=== PATIENT | female | born 1940 | race Caucasian/White ===

== ENCOUNTER 2016-10-22 23:17 | Emergency (ER) | payer MEDICARE, BC ==
[2016-10-22 23:31] VITALS: O2SAT 96
[2016-10-22 23:44] VITALS: TEMP 97.6
--- NOTE | 2016-10-23 00:03 | RAD ---
EXAM DESCRIPTION: XR CHEST 1 VIEW CLINICAL HISTORY: elevated blood pressure, chest tightness COMPARISON: None FINDINGS: Cardiac silhouette is within normal limits. Pacer leads project over the heart. Aorta is tortuous. There is atherosclerosis at the level of the aortic arch. There is no focal parenchymal or pleural disease. There is no acute osseous process visualized. IMPRESSION: No evidence of acute cardiopulmonary disease. Electronically signed by: Kamron Chaidez 10/23/2016 00:00
--- NOTE | 2016-10-23 00:13 | ED.PDOC ---
History of Present Illness - General Chief Complaint: Blood Pressure Problem Stated Complaint: elevated blood pressure Time Seen by Provider: 10/22/16 23:40 Source: patient, RN notes reviewed, Vital Signs reviewed Exam Limitations: no limitations - History of Present Illness Initial Comments: This 76 y/o female with a history of HTN, afib, and pacemaker, has had elevated blood pressure today. Her PCP recently stopped her amlodipine 2.5 mg because her blood pressure had been too high. Yesterday, her blood pressure was as low as 80/39. Today, however, her blood pressure has been high, over 180 systolic. She did take her amlodipine today because of her elevated blood pressure. She denies chest pain, however she feels like she has a band around her chest just under her breasts. Timing/Duration: 24 hours Severity: moderate Improving Factors: nothing Worsening Factors: nothing Associated Symptoms: denies symptoms Allergies/Adverse Reactions: Allergies narcotics Allergy (Uncoded 10/22/16 23:31) Home Medications: Ambulatory Orders Amlodipine Besylate [Norvasc] 2.5 mg PO 10/22/16 Atorvastatin Calcium [Lipitor] 10 mg PO 10/22/16 Escitalopram [Lexapro] 10 mg PO 10/22/16 Flecainide [Tambocor] 50 mg PO 10/22/16 Glipizide 5 mg PO 10/22/16 Guanfacine HCl (Adhd) [Guanfacine ER] 2 mg PO 10/22/16 Losartan Potassium & Hydrochlo [Losartan Potassium/Hydroc 100-25 mg] 1 tab PO Metoprolol Succinate [Metoprolol Succinate ER] 50 mg PO 10/22/16 Omeprazole [PriLOSEC Cap] 20 mg PO 10/22/16 Oxazepam 10 mg PO 10/22/16 Rivaroxaban [Xarelto] 20 mg PO 10/22/16 SAXaglipitin [Onglyza] 5 mg PO 10/22/16 Potassium Chloride [K-Tab] 20 meq PO DAILY #30 tab 10/23/16 Review of Systems - Review of Systems Constitutional: States: no symptoms reported EENTM: States: no symptoms reported Respiratory: States: no symptoms reported Cardiology: States: no symptoms reported Gastrointestinal/Abdominal: States: no symptoms reported Genitourinary: States: no symptoms reported Musculoskeletal: States: no symptoms reported Skin: States: no symptoms reported Neurological: States: tingling - in fingers Endocrine: States: intolerance to cold Hematologic/Lymphatic: States: easy bleeding, easy bruising Past Medical History (General) - Patient Medical History Hx Cardiac Disorders: Yes Hx Congestive Heart Failure: No Hx Hypertension: Yes Hx Diabetes: Yes Surgical History: Hysterectomy - Vaccination History Hx Influenza Vaccination: Yes Hx Pneumococcal Vaccination: Yes - Female History Patient is a Female of Child Bearing Age (10 -59 yrs old): No - Triage Comment ED Triage Comment: states blood pressure had been low, so PCP stopped one of 4 BP meds, now elevated again Family Medical History - Family History Mother Hx Family Stroke: Yes Physical Exam - Physical Exam General Appearance: Alert, Anxious, No apparent distress Eye Exam: bilateral normal Ears, Nose, Throat: hearing grossly normal, normal ENT inspection Respiratory: chest non-tender, lungs clear, normal breath sounds, no respiratory distress, no accessory muscle use Cardiovascular/Chest: no edema, no gallop, no murmur, irregularly irregular Peripheral Pulses: radial,right: 2+, radial,left: 2+, dorsalis pedis,right: 1+, dorsalis pedis,left: 1+ Gastrointestinal/Abdominal: normal bowel sounds, non tender, soft, no organomegaly, no pulsatile mass Extremity: non-tender, no calf tenderness Neurologic: no motor/sensory deficits, alert, normal mood/affect, oriented x 3 Skin Exam: normal color, warm/dry Progress - Results/Orders Results/Orders: 10/22/16 10/22/16 10/22/16 23:28 23:38 23:43 Temperature 97.6 F Pulse Rate [ 80 80 Right] Respiratory 16 Rate Blood Pressure 194/92 [Left Arm] O2 Sat by Pulse 96 Oximetry 10/22/16 10/23/16 10/23/16 23:56 00:17 00:21 Temperature Pulse Rate [ 70 70 70 Right] Respiratory Rate Blood Pressure 191/85 173/76 165/77 [Left Arm] O2 Sat by Pulse Oximetry 10/23/16 00:55 Temperature Pulse Rate [ 70 Right] Respiratory 16 Rate Blood Pressure 159/74 [Left Arm] O2 Sat by Pulse Oximetry 10/22/16 23:45 EKG STAT Laboratory Results WBC 8.3 K/mm3 (4.8-10.8) 10/22/16 23:50 RBC 4.43 M/mm3 (4.20-5.40) 10/22/16 23:50 Hgb 12.7 gm/dL (12.0-16.0) 10/22/16 23:50 Hct 37.0 % (36.0-47.0) 10/22/16 23:50 MCV 83.4 fl (81.0-99.0) 10/22/16 23:50 MCH 28.5 pg (27.0-31.0) 10/22/16 23:50 MCHC 34.2 g/dL (33.0-37.0) 10/22/16 23:50 RDW 14.1 % (11.5-14.5) 10/22/16 23:50 Plt Count 146 K/mm3 (130-400) 10/22/16 23:50 MPV 8.1 fl (7.40-10.4) 10/22/16 23:50 Absolute Neuts (auto) 5.50 K/uL (1.8-6.8) 10/22/16 23:50 Absolute Lymphs (auto) 1.60 K/uL (1.0-3.4) 10/22/16 23:50 Absolute Monos (auto) 1.00 K/uL (0.2-0.8) H 10/22/16 23:50 Absolute Eos (auto) 0.10 K/uL (0.0-0.4) 10/22/16 23:50 Absolute Basos (auto) 0.00 K/uL (0.0-0.1) 10/22/16 23:50 Neutrophils % 66.3 % (42.0-78.0) 10/22/16 23:50 Lymphocytes % 19.3 % (20.0-50.0) L 10/22/16 23:50 Monocytes % 12.5 % (2.0-9.0) H 10/22/16 23:50 Eosinophils % 1.3 % (1.0-5.0) 10/22/16 23:50 Basophils % 0.6 % (0.0-2.0) 10/22/16 23:50 PT 20.5 SECONDS (9.4-12.5) H* 10/22/16 23:50 INR 1.860 10/22/16 23:50 PTT (SP) 39.3 SECONDS (25.1-36.5) H 10/22/16 23:50 Sodium 137 mmol/L (135-145) 10/22/16 23:50 Potassium 2.9 mmol/L (3.6-5.0) L 10/22/16 23:50 Chloride 100 mmol/L (101-111) L 10/22/16 23:50 Carbon Dioxide 31 mmol/L (21-31) 10/22/16 23:50 Anion Gap 8.9 (12-18) L 10/22/16 23:50 BUN 18 mg/dL (7-18) 10/22/16 23:50 Creatinine 1.20 mg/dL (0.6-1.3) 10/22/16 23:50 BUN/Creatinine Ratio 15.0 (10-20) 10/22/16 23:50 Random Glucose 166 mg/dL (70-105) H 10/22/16 23:50 Serum Osmolality 279.5 mOsm/L (275-295) 10/22/16 23:50 Calcium 9.0 mg/dL (8.4-10.2) 10/22/16 23:50 Magnesium 1.8 mg/dL (1.8-2.5) 10/22/16 23:50 Total Bilirubin 1.0 mg/dL (0.2-1.0) 10/22/16 23:50 Direct Bilirubin 0.2 mg/dL (0-0.2) 10/22/16 23:50 Indirect Bilirubin 0.8 mg/dL (0.2-0.8) 10/22/16 23:50 AST 23 IU/L (10-42) 10/22/16 23:50 ALT 16 IU/L (10-60) 10/22/16 23:50 Alkaline Phosphatase 81 IU/L (42-121) 10/22/16 23:50 Creatine Kinase 34 IU/L (26-140) 10/22/16 23:50 CK-MB (CK-2) 0.8 ng/mL (0.0-4.4) 10/22/16 23:50 CK-MB (CK-2) % Not Reportable 10/22/16 23:50 Troponin I < 0.02 ng/mL (0.01-0.05) 10/22/16 23:50 B-Natriuretic Peptide 83.1 pg/ml (0-100) 10/22/16 23:50 Serum Total Protein 7.2 gm/dL (6.4-8.2) 10/22/16 23:50 Albumin 4.1 g/dl (3.2-5.5) 10/22/16 23:50 Urine Color Yellow (Yellow) 10/23/16 00:12 Urine Appearance Clear (Clear) 10/23/16 00:12 Urine pH 5.5 (4.5-7.8) 10/23/16 00:12 Ur Specific [place] 1.020 (1.005-1.030) 10/23/16 00:12 Urine Protein Negative mg/dL 10/23/16 00:12 Urine Glucose (UA) Negative mg/dL (Negative) 10/23/16 00:12 Urine Ketones Negative mg/dL (NEGATIVE) 10/23/16 00:12 Urine Blood Trace-lysed (Negative) H 10/23/16 00:12 Urine Nitrite Negative 10/23/16 00:12 Urine Bilirubin Negative (NEGATIVE) 10/23/16 00:12 Urine Urobilinogen 0.2 mg/dL (0.2-1.0) 10/23/16 00:12 Ur Leukocyte Esterase Negative (Negative) 10/23/16 00:12 Urine RBC 0-1 /hpf 10/23/16 00:12 Urine WBC 0-1 /hpf 10/23/16 00:12 Ur Epithelial Cells 3-5 /hpf 10/23/16 00:12 Urine Bacteria 0 10/23/16 00:12 - EKG/XRAY/CT EKG: Sinus, LBBB Comments: 72bpm, LAD, 1st deg. a/v block, XRAY: chest Xray Comments: Unremarkable Departure - Departure Clinical Impression: Asymptomatic hypertensive urgency, Hypokalemia Hypertension Qualifiers: Hypertension type: essential hypertension Qualifier Code: (I10) Essential ( primary) hypertension Time of Disposition: :19 Disposition: Discharge to Home or Self Care Condition: Fair Departure Forms: ED Discharge - Pt. Copy, Patient Portal Self Enrollment Instructions: Hypokalemia, DI for Hypokalemia Diet: low fat, low cholesterol, diabetic diet, low salt diet Referrals: Tolu Muniz MD [Primary Care Provider] - 1-2 Days Prescriptions: Potassium Chloride [K-Tab] 20 meq PO DAILY #30 tab Home Medications: Ambulatory Orders Amlodipine Besylate [Norvasc] 2.5 mg PO 10/22/16 Atorvastatin Calcium [Lipitor] 10 mg PO 10/22/16 Escitalopram [Lexapro] 10 mg PO 10/22/16 Flecainide [Tambocor] 50 mg PO 10/22/16 Glipizide 5 mg PO 10/22/16 Guanfacine HCl (Adhd) [Guanfacine ER] 2 mg PO 10/22/16 Losartan Potassium & Hydrochlo [Losartan Potassium/Hydroc 100-25 mg] 1 tab PO Metoprolol Succinate [Metoprolol Succinate ER] 50 mg PO 10/22/16 Omeprazole [PriLOSEC Cap] 20 mg PO 10/22/16 Oxazepam 10 mg PO 10/22/16 Rivaroxaban [Xarelto] 20 mg PO 10/22/16 SAXaglipitin [Onglyza] 5 mg PO 10/22/16 Potassium Chloride [K-Tab] 20 meq PO DAILY #30 tab 10/23/16
[2016-10-23] MEDS ORDERED: POTASSIUM CHLORIDE 20 MEQ TAB PO ONE (00:58)
[2016-10-23 01:25] VITALS: BP 156/74
== END 2016-10-23 01:31 | disposition home or self-care (01) ==
LOC: ER 23:17
DX: I16.0 Hypertensive urgency (principal); E87.6 Hypokalemia; E11.9 Type 2 diabetes mellitus without complications; Z82.3 Family history of stroke; I44.0 Atrioventricular block, first degree; I48.91 Unspecified atrial fibrillation; Z95.0 Presence of cardiac pacemaker; Z88.5 Allergy status to narcotic agent; Z79.899 Other long term (current) drug therapy; Z79.02 Long term (current) use of antithrombotics/antiplatelets

== ENCOUNTER → 2016-11-11 | Outpatient (CLI) | payer MEDICARE, BC ==
--- NOTE | 2016-11-11 15:53 | MAM ---
EXAM DESCRIPTION: MAMMO BREAST SCREENING BILATERAL CAD, images were reviewed with CAD technology, R2 computer-aided detection. CLINICAL HISTORY: [facility]. COMPARISON: 2012. FINDINGS: Routine views are obtained. Scattered glandular pattern with the increased mammographic density. Questioned asymmetry right breast 2 o'clock approximately 6-7 cm from the nipple. No microcalcifications or architectural distortion. No mammographic abnormality on the right.. IMPRESSION: Incomplete exam. BIRAD CATEGORY: 0 INCOMPLETE RECOMMENDATIONS: FOLLOW-UP: True lateral view left breast with spot compression films in the true lateral and craniocaudal projections. Followup ultrasound as indicated clinically. According to the [employer], yearly mammograms are recommended starting at age 40 and continuing as long as a woman is in good health. Any breast change noted on a breast self-exam should be reported promptly to the patient's healthcare provider. Breast MRI is recommended for women with an approximately 20-25% or greater lifetime risk of breast cancer, including women with a strong family history of breast or ovarian cancer and women who have been treated for Hodgkin's disease. Electronically signed by: Maida Beck 11/11/2016 15:51
== END ==
LOC: MAMMO 09:26
PROVIDERS: ATTEND Family Medicine
DX: Z12.31 Encounter for screening mammogram for malignant neoplasm of breast (principal)
CPT/HCPCS: 77052; G0202

== ENCOUNTER → 2016-12-05 | Outpatient (CLI) | payer MEDICARE, BC ==
--- NOTE | 2016-12-05 09:26 | MAM ---
EXAM DESCRIPTION: MAMMO BREAST DIAGNOSTIC UNILATERAL Images were reviewed with R2 computer-aided detection. CLINICAL HISTORY: Left breast asymmetry 2 o'clock COMPARISON: Baseline study 11/11/2016. FINDINGS: True lateral and spot compression views are obtained and compared with prior study from 2013. Scattered glandular slightly nodular pattern. No persistent asymmetry is demonstrated on additional views with questioned abnormality representing a superimposition of normal glandular tissue and benign intramammary lymph node. No architectural distortion or dominant mass. Benign appearing calcifications. IMPRESSION: Benign exam. BIRAD CATEGORY: 2 BENIGN RECOMMENDATION: FOLLOW-UP: Routine annual mammography. Findings and recommendations were communicated to the patient by the technologist. According to the [employer], yearly mammograms are recommended starting at age 40 and continuing as long as a woman is in good health. Any breast change noted on a breast self-exam should be reported promptly to the patient's healthcare provider. Breast MRI is recommended for women with an approximately 20-25% or greater lifetime risk of breast cancer, including women with a strong family history of breast or ovarian cancer and women who have been treated for Hodgkin's disease. Electronically signed by: Maida Beck 12/05/2016 09:25
== END | disposition home or self-care (01) ==
LOC: MAMMO 08:24
PROVIDERS: ATTEND Family Medicine
DX: R92.2 Inconclusive mammogram (principal)
CPT/HCPCS: 77065; G0206

== ENCOUNTER → 2017-01-02 | Outpatient (CLI) | payer MEDICARE, BC | END | disposition home or self-care (01) | LOC: GMAJ 11:18 | PROVIDERS: ATTEND Family Medicine | DX: E78.00 Pure hypercholesterolemia, unspecified (principal) ==

== ENCOUNTER → 2017-05-26 | Outpatient (CLI) | payer MEDICARE, BC | END | disposition home or self-care (01) | LOC: GMAJ 10:30 | PROVIDERS: ATTEND Family Medicine | DX: E78.00 Pure hypercholesterolemia, unspecified (principal); I10 Essential (primary) hypertension; E11.9 Type 2 diabetes mellitus without complications ==

== ENCOUNTER → 2017-05-30 | Outpatient (CLI) | payer MEDICARE ==
--- NOTE | 2017-05-31 16:26 | CT ---
PROCEDURE: Head CLINICAL HISTORY: 76 years Female UNSPECIFIED SUBJECTIVE VISUAL DISTURBANCES COMPARISON: 09/27/2013 TECHNIQUE: Contiguous axial CT images obtained through the brain without IV contrast. This exam was performed according to our department optimization program which includes automated exposure control, adjustment of the mA and/or kv according to patient size and/or use of iterative reconstruction technique. FINDINGS: The ventricles and sulci are prominent consistent with atrophic changes. Microvascular ischemic changes. No midline shift or mass effect. No mass lesions. No acute hemorrhage. Atherosclerotic calcifications. The distal basilar artery appears mildly ectatic measuring 5 to 6 mm. This could be further evaluated with CTA. No fluid or significant mucosal thickening in the visualized paranasal sinuses. No depressed calvarial fractures. IMPRESSION: No acute intracranial abnormality is identified. Generalized atrophy with microvascular ischemic changes. 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 This appears more pronounced than on the prior study. This could be further evaluated with CTA Electronically signed by: Ifrah Rendon 05/31/2017 4:25 PM CDT
== END | disposition home or self-care (01) ==
LOC: CT 10:01
PROVIDERS: ATTEND Family Medicine
DX: H53.10 Unspecified subjective visual disturbances (principal)

== ENCOUNTER 2017-07-03 10:25 | Emergency (ER) | payer MEDICARE ==
--- NOTE | 2017-07-03 10:34 | ED.PDOC ---
History of Present Illness - General Chief Complaint: General Time Seen by Provider: 07/03/17 10:33 Source: patient Exam Limitations: no limitations - History of Present Illness Initial Comments: Juju Sommers 76 y/o female stated that she had no productive cough ,congestion nose ,body aches ,feels hot/cold for the last 2 weeks and recently was diagnosed with strep infection had antibiotic shot and taking oral antibiotic as well.No foreign travel,no ill contact. Timing/Duration: other - 2 weeks ago Improving Factors: nothing Worsening Factors: nothing Associated Symptoms: cough - dry Allergies/Adverse Reactions: Allergies Meloxicam [From Mobic] Allergy (Verified 07/03/17 10:45) Nifedipine [From Procardia] Allergy (Verified 07/03/17 10:45) narcotics Allergy (Uncoded 10/22/16 23:31) Home Medications: Ambulatory Orders Amlodipine Besylate [Norvasc] 2.5 mg PO 10/22/16 Atorvastatin Calcium [Lipitor] 10 mg PO 10/22/16 Escitalopram [Lexapro] 10 mg PO 10/22/16 Flecainide [Tambocor] 50 mg PO 10/22/16 Glipizide 5 mg PO 10/22/16 Guanfacine HCl (Adhd) [Guanfacine ER] 2 mg PO 10/22/16 Losartan Potassium & Hydrochlo [Losartan Potassium/Hydroc 100-25 mg] 1 tab PO Metoprolol Succinate [Metoprolol Succinate ER] 50 mg PO 10/22/16 Omeprazole [PriLOSEC Cap] 20 mg PO 10/22/16 Oxazepam 10 mg PO 10/22/16 Rivaroxaban [Xarelto] 20 mg PO 10/22/16 SAXaglipitin [Onglyza] 5 mg PO 10/22/16 Potassium Chloride [K-Tab] 20 meq PO DAILY #30 tab 10/23/16 Review of Systems - Review of Systems Constitutional: States: see HPI EENTM: States: see HPI Respiratory: States: see HPI Cardiology: States: no symptoms reported Gastrointestinal/Abdominal: States: no symptoms reported Genitourinary: States: no symptoms reported Musculoskeletal: States: no symptoms reported Skin: States: no symptoms reported Neurological: States: no symptoms reported Past Medical History (General) - Patient Medical History Hx Cardiac Disorders: Yes Hx Congestive Heart Failure: No Hx Pacemaker: Yes - a.fib Hx Hypertension: Yes Hx Diabetes: Yes Surgical History: other - lumbar spine,hysterectomy,pacemaker - Vaccination History Hx Influenza Vaccination: Yes Hx Pneumococcal Vaccination: Yes - Activities of Daily Living Patient Lives Alone: Yes - /family members nearby Grooming Ability: Independent Eating (Feeding) Ability: Independent Toileting Ability: Independent - Female History Patient is a Female of Child Bearing Age (10 -59 yrs old): No - postmenopausal Family Medical History - Family History Mother Hx Family Stroke: Yes - parents Hx Cardiac Disease: Yes - parents Hx Family Cancer: Yes - sisters-ovarian & breast Sister Hx Family Cancer: Yes Physical Exam - Physical Exam Eye Exam: bilateral normal Ears, Nose, Throat: hearing grossly normal, normal ENT inspection, normal pharynx Neck: non-tender, supple Respiratory: chest non-tender, lungs clear, normal breath sounds Cardiovascular/Chest: normal peripheral pulses, regular rate, rhythm, no murmur Peripheral Pulses: radial,right: 1+, radial,left: 1+ Gastrointestinal/Abdominal: normal bowel sounds, non tender, soft, no organomegaly Back Exam: no CVA tenderness, no vertebral tenderness Extremity: non-tender, no pedal edema, no calf tenderness Neurologic: alert, normal mood/affect, oriented x 3 Skin Exam: normal color, warm/dry Lymphatic: no adenopathy Progress - Progress Progress: 07/03/17 12:14 Vital Signs - 8 hr 07/03/17 07/03/17 10:28 11:05 Temperature 97.6 F Pulse Rate [ 69 70 pulse ox] Respiratory 16 20 Rate Blood Pressure 196/74 182/68 [right brachial ] O2 Sat by Pulse 100 98 Oximetry Laboratory Tests 07/03/17 07/03/17 07/03/17 11:05 11:05 11:05 WBC 6.7 RBC 4.41 Hgb 13.0 Hct 37.8 MCV 85.6 MCH 29.5 MCHC 34.5 RDW 14.6 H Plt Count 175 MPV 7.5 Absolute Neuts (auto) 5.30 Absolute Lymphs (auto) 0.70 L Absolute Monos (auto) 0.60 Absolute Eos (auto) 0.00 Absolute Basos (auto) 0.00 Neutrophils % 79.1 H Lymphocytes % 11.1 L Monocytes % 8.8 Eosinophils % 0.6 L Basophils % 0.4 D-Dimer, Quantitative < 200 Sodium 134 L Potassium 3.5 L Chloride 98 L Carbon Dioxide 29 Anion Gap 10.5 L BUN 22 H Creatinine 0.68 BUN/Creatinine Ratio 32.4 H Random Glucose 321 H Serum Osmolality 283.9 Calcium 9.9 Total Bilirubin 0.9 AST 31 ALT 22 Alkaline Phosphatase 66 Creatine Kinase 40 CK-MB (CK-2) 0.7 CK-MB (CK-2) % Not Reportable Troponin I < 0.02 B-Natriuretic Peptide 129.0 H Serum Total Protein 7.7 Albumin 4.4 Globulin 3.3 Albumin/Globulin Ratio 1.3 Urine Color Urine Appearance Urine pH Ur Specific [place] Urine Protein Urine Glucose (UA) Urine Ketones Urine Blood Urine Nitrite Urine Bilirubin Urine Urobilinogen Ur Leukocyte Esterase Urine RBC Urine WBC Ur Epithelial Cells Urine Bacteria Urine Mucus 07/03/17 11:05 WBC RBC Hgb Hct MCV MCH MCHC RDW Plt Count MPV Absolute Neuts (auto) Absolute Lymphs (auto) Absolute Monos (auto) Absolute Eos (auto) Absolute Basos (auto) Neutrophils % Lymphocytes % Monocytes % Eosinophils % Basophils % D-Dimer, Quantitative Sodium Potassium Chloride Carbon Dioxide Anion Gap BUN Creatinine BUN/Creatinine Ratio Random Glucose Serum Osmolality Calcium Total Bilirubin AST ALT Alkaline Phosphatase Creatine Kinase CK-MB (CK-2) CK-MB (CK-2) % Troponin I B-Natriuretic Peptide Serum Total Protein Albumin Globulin Albumin/Globulin Ratio Urine Color Yellow Urine Appearance Clear Urine pH 6.0 Ur Specific [place] 1.020 Urine Protein Negative Urine Glucose (UA) 500 H Urine Ketones Negative Urine Blood Small H Urine Nitrite Negative Urine Bilirubin Negative Urine Urobilinogen 0.2 Ur Leukocyte Esterase Negative Urine RBC 0-1 Urine WBC 0 Ur Epithelial Cells 1-3 Urine Bacteria 0 Urine Mucus Small - Results/Orders Results/Orders: Laboratory Tests 07/03/17 07/03/17 07/03/17 11:05 11:05 11:05 WBC 6.7 RBC 4.41 Hgb 13.0 Hct 37.8 MCV 85.6 MCH 29.5 MCHC 34.5 RDW 14.6 H Plt Count 175 MPV 7.5 Absolute Neuts (auto) 5.30 Absolute Lymphs (auto) 0.70 L Absolute Monos (auto) 0.60 Absolute Eos (auto) 0.00 Absolute Basos (auto) 0.00 Neutrophils % 79.1 H Lymphocytes % 11.1 L Monocytes % 8.8 Eosinophils % 0.6 L Basophils % 0.4 D-Dimer, Quantitative < 200 Sodium 134 L Potassium 3.5 L Chloride 98 L Carbon Dioxide 29 Anion Gap 10.5 L BUN 22 H Creatinine 0.68 BUN/Creatinine Ratio 32.4 H Random Glucose 321 H Serum Osmolality 283.9 Calcium 9.9 Total Bilirubin 0.9 AST 31 ALT 22 Alkaline Phosphatase 66 Creatine Kinase 40 CK-MB (CK-2) 0.7 CK-MB (CK-2) % Not Reportable Troponin I < 0.02 B-Natriuretic Peptide 129.0 H Serum Total Protein 7.7 Albumin 4.4 Globulin 3.3 Albumin/Globulin Ratio 1.3 Urine Color Urine Appearance Urine pH Ur Specific [place] Urine Protein Urine Glucose (UA) Urine Ketones Urine Blood Urine Nitrite Urine Bilirubin Urine Urobilinogen Ur Leukocyte Esterase Urine RBC Urine WBC Ur Epithelial Cells Urine Bacteria Urine Mucus 07/03/17 11:05 WBC RBC Hgb Hct MCV MCH MCHC RDW Plt Count MPV Absolute Neuts (auto) Absolute Lymphs (auto) Absolute Monos (auto) Absolute Eos (auto) Absolute Basos (auto) Neutrophils % Lymphocytes % Monocytes % Eosinophils % Basophils % D-Dimer, Quantitative Sodium Potassium Chloride Carbon Dioxide Anion Gap BUN Creatinine BUN/Creatinine Ratio Random Glucose Serum Osmolality Calcium Total Bilirubin AST ALT Alkaline Phosphatase Creatine Kinase CK-MB (CK-2) CK-MB (CK-2) % Troponin I B-Natriuretic Peptide Serum Total Protein Albumin Globulin Albumin/Globulin Ratio Urine Color Yellow Urine Appearance Clear Urine pH 6.0 Ur Specific [place] 1.020 Urine Protein Negative Urine Glucose (UA) 500 H Urine Ketones Negative Urine Blood Small H Urine Nitrite Negative Urine Bilirubin Negative Urine Urobilinogen 0.2 Ur Leukocyte Esterase Negative Urine RBC 0-1 Urine WBC 0 Ur Epithelial Cells 1-3 Urine Bacteria 0 Urine Mucus Small - EKG/XRAY/CT EKG: Sinus, LBBB, Unchanged from - 10/22/16 Comments: heart rate-70 XRAY: chest - stable chest Departure - Departure Clinical Impression: Asymptomatic hypertensive urgency, Body aches, Viral upper respiratory illness , History of strep sore throat Time of Disposition: 12:32 Disposition: Discharge to Home or Self Care Condition: Fair Instructions: DI for Viral Upper Respiratory Infection -- Adult Referrals: Tolu Muniz MD [Primary Care Provider] - 1-2 Weeks Home Medications: Ambulatory Orders Amlodipine Besylate [Norvasc] 2.5 mg PO 10/22/16 Atorvastatin Calcium [Lipitor] 10 mg PO 10/22/16 Escitalopram [Lexapro] 10 mg PO 10/22/16 Flecainide [Tambocor] 50 mg PO 10/22/16 Glipizide 5 mg PO 10/22/16 Guanfacine HCl (Adhd) [Guanfacine ER] 2 mg PO 10/22/16 Losartan Potassium & Hydrochlo [Losartan Potassium/Hydroc 100-25 mg] 1 tab PO Metoprolol Succinate [Metoprolol Succinate ER] 50 mg PO 10/22/16 Omeprazole [PriLOSEC Cap] 20 mg PO 10/22/16 Oxazepam 10 mg PO 10/22/16 Rivaroxaban [Xarelto] 20 mg PO 10/22/16 SAXaglipitin [Onglyza] 5 mg PO 10/22/16 Potassium Chloride [K-Tab] 20 meq PO DAILY #30 tab 10/23/16 Additional Instructions: Continue with all home medications;Return to emergency room as needed
[2017-07-03 10:52] VITALS: TEMP 97.6
[2017-07-03] MEDS ORDERED: cloNIDine HCL 0.1 MG TAB PO ONE (11:08)
--- NOTE | 2017-07-03 11:59 | RAD ---
EXAM DESCRIPTION: Chest,2 Views CLINICAL HISTORY: 76 years, Female, fever COMPARISON: October 22 FINDINGS: Adequate inspiration. Fibrotic type changes at the bases. Cardiac silhouette upper normal. Dual-lead pacemaker. IMPRESSION: Stable chronic appearing lung change with upper normal heart size Electronically signed by: Gareth Salazar MD 07/03/2017 11:57 AM CDT
[2017-07-03 12:49] VITALS: BP 121/74; O2SAT 97
== END 2017-07-03 12:45 | disposition home or self-care (01) ==
LOC: ER 10:25
DX: I16.0 Hypertensive urgency (principal); J06.9 Acute upper respiratory infection, unspecified; I48.91 Unspecified atrial fibrillation; E11.9 Type 2 diabetes mellitus without complications; I44.7 Left bundle-branch block, unspecified; M79.1 Myalgia; Z88.8 Allergy status to other drugs, medicaments and biological substances; Z79.899 Other long term (current) drug therapy

== ENCOUNTER → 2017-07-12 | Outpatient (CLI) | payer MEDICARE, BC | LOC: GMA 13:17 | PROVIDERS: ATTEND Nurse Practitioner Family | DX: N30.00 Acute cystitis without hematuria (principal) ==

== ENCOUNTER → 2017-07-15 | Outpatient (CLI) | payer MEDICARE, BC | END | disposition home or self-care (01) | LOC: GMAJ 14:46 | PROVIDERS: ATTEND Family Medicine | DX: R10.9 Unspecified abdominal pain (principal) ==

== ENCOUNTER → 2017-07-16 | Outpatient (CLI) | payer MEDICARE, BC ==
--- NOTE | 2017-07-17 08:48 | CT ---
EXAM DESCRIPTION: Abdomen w/o Contrast CLINICAL HISTORY: ABDOMINAL PAIN COMPARISON: None Available TECHNIQUE: CT of the abdomen only was performed without IV contrast. This exam was performed according to our departmental dose-optimization program, which includes automated exposure control, adjustment of the mA and/or kV according to patient size and/or use of iterative reconstruction technique. FINDINGS: There is no lung base abnormality. No pneumoperitoneum, ascites or adenopathy. No hiatal hernia or definite gastric wall thickening. No calcified gallstone. Cardiac pacemaker leads are only partially visualized. The liver, spleen, pancreas, adrenals and kidneys are unremarkable. Visualized portions of the small bowel are unremarkable. There is minimal colonic diverticulosis, only partially visualized, but no apparent diverticulitis. Portions of the cecum and appendix are not definitely included on this exam. No concerning bone lesion. No abdominal aortic aneurysm. IMPRESSION: Occasional colonic diverticulosis only partially visualized, but no apparent diverticulitis or other intra-abdominal abnormality to explain patient symptoms. Electronically signed by: Jim Huang MD 07/17/2017 8:46 AM CDT
== END ==
LOC: CT 09:40
PROVIDERS: ATTEND Family Medicine
DX: R10.9 Unspecified abdominal pain (principal); K57.30 Diverticulosis of large intestine without perforation or abscess without bleeding

== ENCOUNTER → 2017-11-18 | Outpatient (CLI) | payer MEDICARE, BC | LOC: GMAJ 10:38 | PROVIDERS: ATTEND Family Medicine | DX: I10 Essential (primary) hypertension (principal) ==

== ENCOUNTER → 2017-12-01 | Outpatient (CLI) | payer MEDICARE ==
--- NOTE | 2017-12-03 16:30 | MAM ---
EXAM DESCRIPTION: 3D Screening BILATERAL : Digital Mammography. CLINICAL HISTORY: 77 years Female SCREENING . No complaints. Sister with breast cancer. Prior hysterectomy. HRT 5 or more years ago. COMPARISON: 2-D digital screening bilateral study 11/11/2016 and 11/01/2015. Report from prior examination also reviewed. TECHNIQUE: Bilateral CC and MLO projection full-field images, 3-D tomosynthesis digital mammographic technique. Also bilateral synthesized CC/ MLO full-field images. CAD not utilized. FINDINGS: The breast parenchymal density pattern is: Heterogeneously dense breast tissue, which may obscure small masses. No skin thickening or nipple retraction bilateral solitary microcalcifications. Injection port partially obscuring the left pectoral muscle. Focal asymmetry in the upper left breast is not visualized. No focal, stellate mass or density, focal asymmetry , and no suspicious microcalcifications bilaterally. Stable mammograms compared to prior study, taking into account differences in mammographic technique IMPRESSION: BI-RADS CATEGORY: 2 - BENIGN FINDINGS. FOLLOW UP: Routine digital bilateral screening, one year interval from November 2017. Written communication explaining the IMPRESSION and follow-up, will be mailed to the patient and referring health care provider. According to the [employer], yearly mammograms are recommended starting at age 40 and continuing as long as a woman is in good health. Any breast change noted on a breast self-exam should be reported promptly to the patient's healthcare provider. Breast MRI is recommended for women with an approximately 20-25% or greater lifetime risk of breast cancer, including women with a strong family history of breast or ovarian cancer and women who have been treated for Hodgkin's disease. A negative mammographic report should not delay tissue diagnosis in patients with significant clinical history or physical findings. Extremely dense breast tissue limits the sensitivity of digital mammography. Electronically signed by: Frank Vaca MD 12/03/2017 4:29 PM [employer]
== END ==
LOC: MAMMO 09:30
PROVIDERS: ATTEND Family Medicine
DX: Z12.31 Encounter for screening mammogram for malignant neoplasm of breast (principal)

== ENCOUNTER → 2017-12-04 | Outpatient (CLI) | payer MEDICARE ==
--- NOTE | 2017-12-06 11:33 | RAD ---
4 view right shoulder. Indication: PAIN IN RIGHT SHOULDER Comparison: October 07, 2016. Impression: A.C. and glenohumeral joint alignment normal without acute fracture or dislocation. Slight superior migration humeral head which could indicate underlying rotator cuff tendon tearing. CT arthrogram could better evaluate as clinically indicated. Moderate AC joint osteoarthritis. Mild glenohumeral joint osteoarthritis with persistent millimetric ossification along the inferior margin of the glenoid rim. Cardiac pacemaker noted. Electronically signed by: Niko Nicholson MD 12/06/2017 11:32 AM [facility]
== END ==
LOC: RAD 01:41
PROVIDERS: ATTEND Orthopaedic Surgery
DX: M25.511 Pain in right shoulder (principal); M19.011 Primary osteoarthritis, right shoulder

== ENCOUNTER → 2017-12-08 | Outpatient (CLI) | payer MEDICARE ==
--- NOTE | 2017-12-08 11:32 | RAD ---
EXAM DESCRIPTION: Arthrogram Shoulder Right: RF CLINICAL HISTORY: ROTATOR CUFF SYNDROME. Right shoulder. Prior steroid injections. Patient has pacemaker. COMPARISON: Post-arthrogram CT scan of the right shoulder same date. TECHNIQUE: The procedure was explained to the patient with risks and benefits. The patient gave verbal and written consent. Patient supine on the fluoroscopic table with right shoulder in external rotation. The anterior mid superior right glenohumeral joint was localized by fluoroscopy. The skin was marked, then prepped and draped in a sterile fashion. Intradermal, subcutaneous and intramuscular 1% lidocaine was given for topical anesthesia. A 1.5 inch 25-gauge needle was introduced into the anterior superior right glenohumeral joint capsule under fluoroscopic visualization. A test injection of 2 cc of non-ionic contrast was performed under fluoroscopy. Additional 10 CC of contrast mixture of 1% lidocaine and nonionic contrast material was then injected under fluoroscopy. The patient tolerated the procedure well. Partial extra-articular injection. Patient was transferred to the CT suite for spiral-axial and reconstruction imaging. No immediate complications. Single AP image of the right shoulder in external rotation obtained. Total fluoroscopic time was 0.8 minutes. Dose was 5.87 mGy. IMPRESSION: Successful, fluoroscopic guided contrast arthrogram of the right shoulder, prior to CT scan. Please refer to that report. Electronically signed by: Frank Vaca MD 12/08/2017 11:31 AM [facility]
--- NOTE | 2017-12-08 11:39 | CT ---
CT arthrogram right shoulder INDICATION: Shoulder pain rotator cuff syndrome TECHNIQUE: Helical CT images through the right shoulder post arthrogram with multiplanar reformats This exam was performed according to our departmental dose-optimization program, which includes automated exposure control, adjustment of the mA and/or kV according to patient size and/or use of iterative reconstruction technique. FINDINGS: Subscapularis is intact. Long head bicep is anatomic in location with mild fraying. There is vacuum phenomena within the AC joint indicating mild to moderate osteoarthrosis. There is subacromial enthesophyte formation as well. No detachment of the bicep labral anchor. Minimal glenohumeral osteophyte formation. No full-thickness rotator cuff tear is noted. No bursal contrast extension. Mild degenerative fraying posterior superior labrum without displaced tear. No fracture dislocation or focal destructive lesion. No pathologic adenopathy in the axilla. Minimal synovitis within the glenohumeral capsule. Fairly normal capsular volume. There is mild generalized grade 1 marbling of the rotator cuff muscle bellies. Bursal surface partial tears of the rotator cuff are not visible by CT arthrogram. IMPRESSION: No full-thickness rotator cuff tear Generalized mild grade 1 marbling of the rotator cuff muscle bellies AC joint arthrosis with vacuum phenomenon and subacromial enthesophyte formation Mild labral degeneration and minimal glenohumeral osteophyte formation Electronically signed by: Ryan Squires MD 12/08/2017 11:38 AM [employer]
== END ==
LOC: CT 09:00
PROVIDERS: ATTEND Orthopaedic Surgery
DX: M75.101 Unspecified rotator cuff tear or rupture of right shoulder, not specified as traumatic (principal)

== ENCOUNTER → 2018-01-19 | Outpatient (CLI) | payer MEDICARE ==
--- NOTE | 2018-01-19 09:12 | RAD ---
EXAM DESCRIPTION: Knee,Right Complete CLINICAL HISTORY: PAIN IN RIGHT KNEE COMPARISON: None. TECHNIQUE: 4 views right FINDINGS: Mild loss of disc height is observed in the medial joint compartment. Mild patellofemoral joint degenerative changes are also observed. No joint effusion is seen. No fracturing is detected. IMPRESSION: There are mild degenerative changes are observed. No fracturing is detected. Electronically signed by: Kris Dee MD 01/19/2018 9:10 AM CDT
--- NOTE | 2018-01-19 09:13 | RAD ---
EXAM DESCRIPTION: Pelvis CLINICAL HISTORY: PAIN IN HIP COMPARISON: None. TECHNIQUE: AP pelvis FINDINGS: The proximal femurs are normal. The bony pelvis is intact. No fracturing is detected. IMPRESSION: Normal pelvis. Electronically signed by: Kris Dee MD 01/19/2018 9:12 AM CDT
== END ==
LOC: RAD 08:07
PROVIDERS: ATTEND Orthopaedic Surgery
DX: M25.561 Pain in right knee (principal); M25.551 Pain in right hip

== ENCOUNTER → 2018-08-20 | Outpatient (CLI) | payer MEDICARE | LOC: GMAJ 10:34 | PROVIDERS: ATTEND Family Medicine | DX: I10 Essential (primary) hypertension (principal) ==

== ENCOUNTER → 2018-12-03 | Outpatient (CLI) | payer MEDICARE ==
--- NOTE | 2018-12-04 14:52 | MAM ---
EXAM DESCRIPTION: 3D Screening BILATERAL : Digital Mammography. CLINICAL HISTORY: 78 years Female SCREENING . No complaints or personal history of breast cancer. Sister with breast and ovarian cancer. Childbirth. Hysterectomy 38 years ago. HRT more than 5 years ago.. Lifetime risk of developing breast cancer (Tyrer-Cuzick model)(%): 6.0. COMPARISON: Bilateral screening digital breast tomosynthesis 12/01/2017.. TECHNIQUE: Bilateral CC and MLO projection full-field images, digital tomosynthesis mammographic technique. Bilateral digital 2-D full-field MLO images. CAD not available for tomosynthesis or 2-D images. FINDINGS: The breast parenchymal density pattern is: Scattered areas of fibroglandular density. 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 Bilateral solitary microcalcifications. Focal asymmetry in the mid right breast is stable. No new focal, stellate mass or density, focal asymmetry , and no suspicious microcalcifications bilaterally. Stable mammograms compared to prior study. IMPRESSION: Benign exam. BIRAD CATEGORY: 2 BENIGN FINDINGS. RECOMMENDATIONS: FOLLOW UP: Routine digital bilateral mammographic screening, one year interval from November 2018. Written communication explaining the IMPRESSION and follow-up, will be mailed to the patient and referring health care provider. According to the [employer], yearly mammograms are recommended starting at age 40 and continuing as long as a woman is in good health. Any breast change noted on a breast self-exam should be reported promptly to the patient's healthcare provider. Breast MRI is recommended for women with an approximately 20-25% or greater lifetime risk of breast cancer, including women with a strong family history of breast or ovarian cancer and women who have been treated for Hodgkin's disease. A negative mammographic report should not delay tissue diagnosis in patients with significant clinical history or physical findings. Extremely dense breast tissue limits the sensitivity of digital mammography. Electronically signed by: Frank Vaca MD 12/04/2018 2:50 PM [employer]
== END ==
LOC: MAMMO 09:30
PROVIDERS: ATTEND Family Medicine
DX: Z12.31 Encounter for screening mammogram for malignant neoplasm of breast (principal)

== ENCOUNTER → 2020-05-05 | Outpatient (CLI) | payer MEDICARE ==
--- NOTE | 2020-05-08 16:29 | CT ---
EXAM DESCRIPTION: Lumbar Spine: Computed Tomography. CLINICAL HISTORY: 79 years Female SPINAL STENOSIS LUMBAR REGION COMPARISON: Pelvic radiograph January 2018. TECHNIQUE: Spiral, axial 2.5 x 2.5 mm scans through the lumbarspine without contrast. Coronal and sagittal 2.0 mm Reconstructions. Total Exam DLP: 319 mGy-cm. This exam was performed according to our departmental dose-optimization program which includes automated exposure control, adjustment of the mA and/or kV according to patient size and/or use of iterative reconstruction technique; to reduce radiation dose to as low as reasonably achievable (ALARA). FINDINGS: L5-S1: Midline disc protrusion 5 mm with inferior spur from the S1 endplate impressing on the midline thecal sac. Bony spur effacement of the left subarticular recess and impressing on the left descending S1 nerve. Degenerative hypertrophic changes in the facet joints and posterior flavum ligaments (canal elements) more on the right. Desiccated disc gas in the disc space. Moderate canal narrowing. Borderline bilateral foraminal stenosis. L4-L5: Disc space loss with desiccated gas formation in the midline left of midline. Endplate spurs and sclerosis left of midline encroaching into the lateral left soft tissues. Posterior broad-based bulge 3 to 4 mm in the midline. Hypertrophic changes in the canal elements. AP canal diameter 10 mm. Moderate to severe right foraminal narrowing and borderline stenosis left foramen. Bilateral narrowing of the subarticular recesses. L3-L4: Disc space loss with anterior and posterior bulging. Mild to moderate narrowing of the left foramen. Disc bulge into the right foramen. Hypertrophic changes in the canal elements, more on the right with borderline right foraminal stenosis. AP canal diameter 9 mm. L2-L3: Disc space maintained. No posterior bulging. Hypertrophic changes in the canal elements. AP canal diameter 12 mm. Bilateral mild foraminal narrowing. L1-L2: Disc space maintained no significant bulging. Hypertrophic changes in the canal elements. AP canal diameter 13 mm. Bilateral mild foraminal narrowing. Minimal narrowing of the right subarticular recess. T12-L1: Minimal disc space loss posterior. Posterior endplate spurs. Hypertrophic changes in the canal elements. Canal is patent. Bilateral mild foraminal narrowing. No significant spondylolisthesis. No scoliosis. Decreased lower lumbar lordosis. No compression type vertebral body fractures. No spondylolysis. IMPRESSION: 1. Midline L5-S1 desiccated disc protrusion with S1 endplate bone spur impressing on the thecal sac. Effacement of the left subarticular recess with possible compromise descending left S1 nerve. Borderline bilateral foraminal stenosis. Correlate with bilateral L5 radiculopathy. 2. Desiccated L4-5 disc with advanced spondylosis in the midline and left of midline. Borderline stenosis possible compromise left L4 nerve. Borderline mild central canal stenosis with posterior disc bulge. Moderate to severe right foraminal narrowing. 3. Multifactorial mild central canal stenosis at L3-L4. Borderline right foraminal stenosis. Correlate for right L3 radiculopathy. Electronically signed by: Frank Vaca MD 05/08/2020 4:27 PM CDT
== END ==
LOC: CT 10:55
PROVIDERS: ATTEND Family Medicine
DX: M48.061 Spinal stenosis, lumbar region without neurogenic claudication (principal); M51.26 Other intervertebral disc displacement, lumbar region; M47.896 Other spondylosis, lumbar region; M51.27 Other intervertebral disc displacement, lumbosacral region; M51.37 Other intervertebral disc degeneration, lumbosacral region; M48.07 Spinal stenosis, lumbosacral region

== ENCOUNTER → 2020-07-03 | Outpatient (CLI) | payer MEDICARE ==
--- NOTE | 2020-07-03 14:47 | RAD ---
4 radiographs right knee Indication: PAIN IN LEFT KNEE Comparison: January 19, 2018 Impression: Moderate osteoarthritis at the medial knee compartment noted with mild changes of the lateral and patellofemoral compartments as on the prior. Trace lateral patellar tilt and subluxation. Small knee effusion. Enthesophyte formation quadriceps tendon insertion and patellar tendon insertion. Electronically signed by: Niko Nicholson MD 07/03/2020 2:45 PM CDT
== END ==
LOC: RAD 09:00
PROVIDERS: ATTEND Orthopaedic Surgery
DX: M17.12 Unilateral primary osteoarthritis, left knee (principal); S83.012A Lateral subluxation of left patella, initial encounter; M76.892 Other specified enthesopathies of left lower limb, excluding foot; M25.462 Effusion, left knee